=== PATIENT | female | born 1990 | race Caucasian/White ===

== ENCOUNTER → 2024-03-26 11:12 | Outpatient (REF) | payer BC, SELFPAY ==
[2024-03-26 15:47] LABS: Draw Blood Only DBO
== END ==
LOC: REG 11:12
PROVIDERS: ATTENDING PHYSICIAN Chiropractor; FAMILY PHYSICIAN Family Medicine
DX: L50.9 Urticaria, unspecified (principal); K58.9 Irritable bowel syndrome, unspecified
CPT/HCPCS: 36415

== ENCOUNTER → 2024-06-14 14:16 | Outpatient (REF) | payer BC, SELFPAY | LOC: HWRAD 14:16 | PROVIDERS: ATTENDING PHYSICIAN Dermatology; FAMILY PHYSICIAN Family Medicine | DX: D48.5 Neoplasm of uncertain behavior of skin (principal) | CPT/HCPCS: 76536 ==

== ENCOUNTER → 2025-09-10 13:26 | Outpatient (REF) | payer BC, SELFPAY | LOC: HWRAD 13:26 | PROVIDERS: FAMILY PHYSICIAN Physician Assistant Medical | DX: R14.0 Abdominal distension (gaseous) (principal) | CPT/HCPCS: 76830; 76856 ==